=== PATIENT | male | born 2005 | race Caucasian/White ===

== ENCOUNTER → 2024-05-21 | Outpatient (CLI) | payer BC, SELFPAY ==
--- NOTE | 2024-05-21 10:02 | XR_ITS ---
Examination: Lumbar spine 7 views TECHNIQUE: AP, lateral, standing lateral flexion standing lateral extension, coned lateral lower lumbar spine, GARCIA MAY 7 views Exam date and time: May 21, 2024 1057 hours INDICATIONS: Family history scoliosis back pain 3 months. FINDINGS: Spina bifida S1 No lumbar fracture Moderate disc narrowing L5-S1 No spondylolisthesis Adequate range of motion between flexion and extension IMPRESSION: Moderate degenerative disc disease L5-S1
--- NOTE | 2024-05-21 10:02 | XR_ITS ---
Examination: Thoracic spine 3 views Technique one AP lateral coned lateral upper dorsal spine 3 views Exam date and time: May 21, 2024 1058 hours INDICATIONS: Family history scoliosis, back pain 3 months FINDINGS: Thoracic levoscoliosis 6 degrees No thoracic acute fracture Mild wedging of multiple upper dorsal vertebral bodies with early degenerative disc disease IMPRESSION: Lumbar levoscoliosis 6 degrees Chronic mild wedging of upper dorsal vertebral bodies No acute thoracic fracture
== END | disposition home or self-care (01) ==
PROVIDERS: PCP Family Medicine; Referring Provider Nurse Practitioner Family; Visit Provider Nurse Practitioner Family
DX: M51.379 Other intervertebral disc degeneration, lumbosacral region without mention of lumbar back pain or lower extremity pain (principal); M41.86 Other forms of scoliosis, lumbar region
CPT/HCPCS: 72072; 72114

== ENCOUNTER → 2024-05-22 | Outpatient (CLI) | payer BC, SELFPAY ==
[2024-05-22 16:44] LABS: Basophils # (Auto) 0.1 Thou/mm3 (0.0-0.2); Basophils % (Auto) 1 % (0-2.5); Eosinophils # (Auto) 0.1 Thou/mm3 (0.0-0.5); Eosinophils % (Auto) 2 % (0-10); Hematocrit 43.2 % (41.0-53.0); Hemoglobin 14.8 g/dL (13.5-16.0); Immature Granulocytes % (Auto) 0 % (0-0); Immature Granulocytes Auto 0.01 Thou/mm3 (0.00-0.00); Lymphocytes # (Auto) 1.1 Thou/mm3 (1.0-4.8); Lymphocytes % (Auto) 19 % (10-50); Mean Corpuscular HGB Conc 34.3 g/dl (31.0-37.0); Mean Corpuscular Hemoglobin 29.2 pg (25.0-35.0); Mean Corpuscular Volume 85 fL (80-100); Monocytes # (Auto) 0.5 Thou/mm3 (0.0-0.8); Monocytes % (Auto) 8 % (0-12); Neutrophils # (Auto) 4.1 Thou/mm3 (1.8-7.7); Neutrophils % (Auto) 70 % (37-80); Nucleated Red Blood Cell % 0 /100 WBC (0); Platelet Count 266 Thou/mm3 (140-440); Red Blood Count 5.06 Miln/mm3 (4.50-5.90); White Blood Count 5.8 Thou/mm3 (4.5-11.0)
[2024-05-22 17:02] LABS: Alanine Aminotransferase 19 U/L (10-49); Albumin, Serum 5.3 gm/dL (3.5-5.0); Albumin/Globulin Ratio 2.7 (1.2-2.2); Alkaline Phosphatase 69 U/L (46-116); Anion Gap 10 (7-16); Aspartate Amino Transferase 20 U/L (0-34); BUN/Creatinine Ratio 19 Ratio (12-20); Bilirubin,Total 0.4 mg/dL (0.3-1.2); Blood Urea Nitrogen 17 mg/dL (9-23); Calcium 10.3 mg/dL (8.3-10.6); Calcium (Corrected) 10.3 mg/dL (8.5-10.1); Carbon Dioxide 28.4 mMol/L (20.0-31.0); Chloride 103 mMol/L (98-107); Creatinine (Component) 0.9 mg/dL (0.6-1.3); Glucose 114 mg/dL (74-106); Osmolality,Calculated 283 (275-295); Potassium 3.8 mMol/L (3.4-5.1); Sodium 141 mMol/L (136-145); T4 (Thyroxine) 8.1 mcg/dL (4.5-10.9); Thyroid Stimulating Hormone 2.82 uIU/mL (0.55-4.78); Total Protein 7.3 gm/dL (5.7-8.2); eGFR > 60 See Note
[2024-05-22 19:32] LABS: Glucose Estimated Average 100 mg/dL (80-131); Hemoglobin A1C 5.1 % Hgb (4.8-6.0)
[2024-05-28 06:36] LABS: HLA-B27 Antigen* NEGATIVE (NEGATIVE)
== END | disposition home or self-care (01) ==
LOC: COPL 15:37
PROVIDERS: PCP Family Medicine; Referring Provider Nurse Practitioner Family; Visit Provider Nurse Practitioner Family
DX: M45.0 Ankylosing spondylitis of multiple sites in spine (principal); R53.83 Other fatigue; Z86.39 Personal history of other endocrine, nutritional and metabolic disease
CPT/HCPCS: 36415; 80053; 83036; 84436; 84443; 85025; 86812

== ENCOUNTER 2024-10-26 09:26 | Emergency (ER) | payer BC, SELFPAY ==
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
[2024-10-26 09:36] VITALS: BP 161/81; PULSE 113; RESP 20; TEMP 36.9; O2SAT 95
[2024-10-26 09:39] VITALS: BMI 22.7
--- NOTE | 2024-10-26 09:46 | EKG_ITS ---
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
--- NOTE | 2024-10-26 10:27 | XR_ITS ---
Examination: CT brain head without contrast. 2-D sagittal coronal reconstructions Date and time of exam:October 26, 2024, 1115 hrs. Indications: Altered mental status today CTDI: vol (mGy):50 DLP: (mGycm):908 Technique: Multiple CT axial sections of the brain have been obtained, 5 mm slice thickness. Contrast has not been administered. 2-D sagittal, coronal reconstructions have been obtained Low dose protocols were performed. One or more of the following dose reduction techniques were used; automated exposure control, adjustment of the mA and/or KV according to patient size, use of iterative reconstruction technique. Findings: No significant ventricular enlargement. Intra-axial or extra-axial hemorrhage density is not seen. No mass effect or midline shift Basal cisterns are not remarkable. Fourth ventricle is midline. Cranial vault intact. Impression: Negative for acute hemorrhage, mass effect or midline shift
--- NOTE | 2024-10-26 10:31 | PD.EDSEIZ ---
ED Seizures RME/HPI General Chief Complaint: Seizure Stated Complaint: Seizure Time Seen by Provider: 10/26/24 09:50 Arrival date/time: 10/26/24 09:26 Limitations: no limitations RME / HPI RME / HPI Narrative: DR. VELASOC MAIN ED EVALUATION: 19 year old male presents to the Emergency Department with complaint of seizure-like activity. The episode today lasted about 5 minutes and the patient was alert and able to speak shortly after the episode. Per father, he had 2 episodes this year, last one in June; father showed me a video of the episode in June and it does not look like a seizure. No neurologist or history of seizure. Associated symptoms includes a headache. Related Data Home Medications ?Medication ?Instructions ?Recorded ?Confirmed No Known Home Medications 06/22/19 06/22/19 Allergies Allergy/AdvReac Type Severity Reaction Status Date / Time No Known Allergies Allergy Verified 10/26/24 09:30 Review of Systems Review of Systems Systems Reviewed: All systems reviewed, normal except as documented Past Medical History Social History SMOKING STATUS: Never smoker SUBSTANCE USE: does not use ALCOHOL: Never ED Exam General Limitations: Present no limitations General appearance: Present alert and in no apparent distress Head Head exam: Present atraumatic, normocephalic and normal inspection Eye Eye exam: Present normal appearance, PERRL and EOMI ENT ENT exam: Present normal exam, normal oropharynx and mucous membranes moist Neck Neck exam: Present normal inspection, full ROM and trachea midline Chest Chest inspection: Present normal inspection and symmetric chest wall rise Respiratory Respiratory exam: Present normal lung sounds bilaterally Cardiovascular Cardiovascular exam: Present regular rate, normal rhythm and normal heart sounds Abdominal Exam Abdominal exam: Present soft and normal bowel sounds Extremities Exam Extremities exam: Present normal inspection and full ROM Back Exam Back exam: Present normal inspection and full ROM Neurological Exam Neurological exam: Present alert, oriented X3 and CN II-XII intact Psychiatric Psychiatric exam: Present normal affect and normal mood Skin Skin exam: Present warm, dry, intact and normal color Course Quality Measures none Orders Category Date Time Status It Sales Consultant NOW Care 10/26/24 10:25 Completed Continuous Pulse Oximetry NOW Care 10/26/24 10:25 Completed EKG (ED ONLY) *Do not use* NOW Care 10/26/24 09:46 Completed Insert IV NOW Care 10/26/24 10:26 Completed NPO NOW Care 10/26/24 10:[address] head/brain wo con Stat Exams 10/26/24 10:27 Completed EKG (ED Only) Stat Exams 10/26/24 09:46 Draft Acetaminophen Stat Lab 10/26/24 09:33 Completed Alcohol, Blood Medical Stat Lab 10/26/24 09:33 Completed CBC Stat Lab 10/26/24 09:33 Completed Comprehensive Metabolic Panel Stat Lab 10/26/24 09:33 Completed Drug Screen,Urine Stat Lab 10/26/24 10:26 Ordered Magnesium Stat Lab 10/26/24 09:33 Completed Partial Thromboplastin Time Stat Lab 10/26/24 09:33 Completed Prothrombin Time with INR Stat Lab 10/26/24 09:33 Completed Salicylate Stat Lab 10/26/24 09:33 Completed Urinalysis Stat Lab 10/26/24 10:26 Ordered Ketorolac Inj [Toradol Inj] Med 10/26/24 10:33 Discontinued 15 mg IVP X1 ONE Morphine Inj Med 10/26/24 10:33 Discontinued 4 mg IVP X1 ONE Ondansetron Inj [Zofran Inj] Med 10/26/24 10:32 Discontinued 4 mg IVP X1 ONE Potassium Chloride [K-Dur] Med 10/26/24 13:01 Discontinued 40 meq PO X1 ONE Sodium Chloride 0.9% 1000 ml [Ns] 1,000 ml Med 10/26/24 10:25 Discontinued IV 1,000 mls/hr levETIRAcetam INJ [Keppra Inj] Med 10/26/24 10:25 Discontinued 1,000 mg IVP X1 ONE Vital Signs Vital signs: Vital Signs Temperature 98.4 F 10/26/24 09:36 Pulse Rate 113 H 10/26/24 09:36 Respiratory Rate 20 10/26/24 09:36 Blood Pressure 161/81 H 10/26/24 09:36 Pulse Oximetry (%) 95 10/26/24 09:36 Oxygen Delivery Method Nasal Cannula 10/26/24 09:36 Oxygen Flow Rate 2 10/26/24 09:36 Seizure MDM Narrative MDM Narrative:: ICarri am scribing for and in the presence of Dr. Velasco. Patient data External records reviewed:: [facility] previous records Clinical information provided by:: patient and family Social determinants that could affect healthcare access:: substance use (marijuana) Patient has the following chronic illnesses:: Denies any PMHx, surgeries, daily medications, or known allergies. How is presenting disease/condition affected by chronic disease/condition?: no chronic disease Evaluation data The following diagnostics were reviewed and interpreted by me:: lab results, radiology exam(s) and EKG tracing(s) (My interpretation: EKG performed at 0953 hours, sinus tachycardia, rate 101, no acute changes, no STEMI) Lab and/or radiology exams considered but not ordered:: none Interpretation Summary: Procedure(s): CT head/brain wo con Accession Number(s): [id number] cc: Aidan Velasco MD; Yvon Plasencia MD; Sondra Thompson MD~ Examination: CT brain head without contrast. 2-D sagittal coronal reconstructions Date and time of exam:October 26, 2024, 1115 hrs. Indications: Altered mental status today CTDI: vol (mGy):50 DLP: (mGycm):908 Technique: Multiple CT axial sections of the brain have been obtained, 5 mm slice thickness. Contrast has not been administered. 2-D sagittal, coronal reconstructions have been obtained Low dose protocols were performed. One or more of the following dose reduction techniques were used; automated exposure control, adjustment of the mA and/or KV according to patient size, use of iterative reconstruction technique. Findings: No significant ventricular enlargement. Intra-axial or extra-axial hemorrhage density is not seen. No mass effect or midline shift Basal cisterns are not remarkable. Fourth ventricle is midline. Cranial vault intact. Impression: Negative for acute hemorrhage, mass effect or midline shift Dictated By: Yvon Plasencia MD Medications / Prescriptions Medications or Prescriptions considered but not ordered:: none Medication administrations:: Medication Administration History Discontinued Medications Sodium Chloride (Ns) 1,000 mls @ 1,000 mls/hr IV .Q1H ONE Stop: 10/26/24 11:24 Last Infusion: 10/26/24 11:45 Dose: Infused Documented By: Admin: 10/26/24 10:41 Dose: 1,000 mls/hr Documented By: SONIA Ketorolac Tromethamine (Ketorolac Inj 30 Mg/Ml Vial) 15 mg IVP X1 ONE Stop: 10/26/24 10:34 Last Admin: 10/26/24 10:54 Dose: 15 mg Documented By: GM Levetiracetam (Levetiracetam Inj 100 Mg/Ml Vial 5ml) 1,000 mg IVP X1 ONE Stop: 10/26/24 10:26 Last Admin: 10/26/24 10:35 Dose: 1,000 mg Documented By: GM Morphine Sulfate (Morphine Sulf Inj 10 Mg/Ml Vial) 4 mg IVP X1 ONE Stop: 10/26/24 10:34 Last Admin: 10/26/24 10:52 Dose: Not Given Documented By: GM Non-Admin Reason: Patient Refused Ondansetron HCl (Ondansetron Inj 2 Mg/Ml Inj 2 Ml) 4 mg IVP X1 ONE; Protocol Stop: 10/26/24 10:33 Last Admin: 10/26/24 10:40 Dose: 4 mg Documented By: GM Potassium Chloride (Potassium Chloride 20 Meq Tabcr) 40 meq PO X1 ONE Stop: 10/26/24 13:02 see above Consultations Consultation(s) initiated? (list below): No Diagnosis Seizure Differential Diagnosis: intractable seizure disorder, focal seizure and generalized seizure Most likely diagnosis given after review of the tests above:: Hypokalemia Hypocalcemia Admission Indicated Admission indicated?: not indicated Admission Request Was there a request for admission?: No Disposition Plan Disposition Plan: Discharge Discharge Attestation Discharge Attestation: The patient and all family members were given an opportunity to ask questions and understood the discharge instructions. Discharge instructions specifically effects, indications for sooner follow up or return to the emergency department, and the expected course of current diagnosis. Patient condition: Stable Discharge Plan Plan Patient Disposition: HOME (Self Care) Patient condition on transfer: Stable Prescriptions/Referrals Prescriptions/Med Rec: No Action No Known Home Medications Referrals: Sondra Thompson MD [Primary Care Provider] - In 1 week Problem List Clinical Impression: Hypokalemia, Hypocalcemia Patient/Caregiver Discharge Instructions Education Materials: ED Hypokalemia, ED Hypocalcemia (Adult) Additional Instructions: Please follow up with PCP by Tuesday to repeat labs and get a treatment of for hypocalcemia. Consider referral to neurologist. Return to the Emergency Department as needed. Print Language: Faroese Stand Alone Forms: Gisselle Award Info., Patient Portal Info Letter
[2024-10-26] MEDS: levETIRAcetam INJ 100 MG/ML VIAL 5ML 1000 MG IVP (10:35)
[2024-10-26] MEDS: ONDANSETRON INJ 2 MG/ML INJ 2 ML 4 MG IVP (10:40)
[2024-10-26] MEDS: SODIUM CHLORIDE 0.9% 1000 ML 1,000 ML IV (10:41)
[2024-10-26] MEDS: KETOROLAC INJ 30 MG/ML VIAL 15 MG IVP (10:54)
[2024-10-26 11:01] VITALS: BP 118/63; PULSE 70; RESP 19; TEMP 36.9; O2SAT 100
[2024-10-26 11:02] LABS: Basophils # (Auto) 0.1 Thou/mm3 (0.0-0.2); Basophils % (Auto) 1 % (0-2.5); Eosinophils # (Auto) 0.2 Thou/mm3 (0.0-0.5); Eosinophils % (Auto) 1 % (0-10); Hematocrit 52.0 % (41.0-53.0); Hemoglobin 16.4 g/dL (13.5-16.0); Immature Granulocytes Auto 0.06 Thou/mm3 (0.00-0.00); Lymphocytes # (Auto) 3.3 Thou/mm3 (1.0-4.8); Lymphocytes % (Auto) 26 % (10-50); Mean Corpuscular HGB Conc 31.5 g/dl (31.0-37.0); Mean Corpuscular Hemoglobin 28.8 pg (25.0-35.0); Mean Corpuscular Volume 91 fL (80-100); Monocytes # (Auto) 1.1 Thou/mm3 (0.0-0.8); Monocytes % (Auto) 9 % (0-12); Neutrophils # (Auto) 7.9 Thou/mm3 (1.8-7.7); Neutrophils % (Auto) 63 % (37-80); Nucleated Red Blood Cell # 0.00 Thou/mm3 (0.00-0.00); Nucleated Red Blood Cell % 0 /100 WBC (0); Platelet Count 351 Thou/mm3 (140-440); RDW Standard Deviation 40.1 fL (35.1-43.9); Red Blood Count 5.69 Miln/mm3 (4.50-5.90); White Blood Count 12.6 Thou/mm3 (4.5-11.0)
[2024-10-26 11:18] LABS: INR 1.1 (0.9-1.3); Partial Thromboplastin Time 23.4 Seconds (22.0-36.0); Prothrombin Time 11.9 Seconds (9.0-12.2)
[2024-10-26 11:27] LABS: Acetaminophen < 2.0 mcg/mL (10.0-20.0); Alanine Aminotransferase 18 U/L (10-49); Albumin, Serum 5.3 gm/dL (3.5-5.0); Albumin/Globulin Ratio 2.0 (1.2-2.2); Alcohol, Blood Medical < 3.0 mg/dL (0-10.0); Alkaline Phosphatase 79 U/L (46-116); Anion Gap 27 (7-16); Aspartate Amino Transferase 23 U/L (0-34); BUN/Creatinine Ratio 11 Ratio (12-20); Bilirubin,Total 0.7 mg/dL (0.3-1.2); Blood Urea Nitrogen 13 mg/dL (9-23); Calcium 10.6 mg/dL (8.3-10.6); Calcium (Corrected) 10.6 mg/dL (8.5-10.1); Chloride 111 mMol/L (98-107); Creatinine (Component) 1.2 mg/dL (0.6-1.3); Estimated Creatinine Clearance 99.8 mL/min (>60); Globulin 2.6 gm/dL (2.3-3.5); Glucose 124 mg/dL (74-106); Magnesium 2.4 mg/dL (1.6-2.6); Osmolality,Calculated 302 (275-295); Potassium 3.3 mMol/L (3.4-5.1); Salicylate < 3.0 mg/dL; Sodium 152 mMol/L (136-145); Total Protein 7.9 gm/dL (5.7-8.2); eGFR > 60 See Note
--- NOTE | 2024-10-26 11:30 | PRELIM_ITS ---
CT scan of the head without intravenous contrast (axial sections with sagittal and coronal reformats). October 26, 2024 1115 hours Clinical History: ams Comparison: No prior study is available for comparison at the time of interpretation Findings: No evidence of intracranial hemorrhage, mass effect or midline shift. The ventricles and CSF spaces are unremarkable. The calvarium is unremarkable. Mild mucosal thickening is seen in bilateral maxillary sinuses. The mastoid air cells and the other visualized paranasal sinuses are clear. Impression: No evidence of intracranial hemorrhage, mass effect or midline shift. If there are persistent clinical symptoms or additional clinical concerns, consider MRI. Report Electronically Signed By: Fermin Feliz 10/26/2024 11:29:13 AM [EST]
[2024-10-26 11:33] LABS: Carbon Dioxide 13.6 mMol/L (20.0-31.0)
[2024-10-26 13:41] VITALS: BP 126/84; PULSE 90; RESP 18; TEMP 36.8; O2SAT 95
== END 2024-10-26 14:40 | disposition home or self-care (01) ==
PROVIDERS: Emergency Provider Family Medicine; PCP Family Medicine
DX: E87.6 Hypokalemia (principal); E83.51 Hypocalcemia; R41.82 Altered mental status, unspecified; R00.0 Tachycardia, unspecified
CPT/HCPCS: 36415; 70450; 80053; 80307; 80320; 80329; 81001; 83735; 85025; 85610; 85730; 93005; 96361; 96374; 96375; 99284; J1885; J1953; J2405; J7030; A9270; G0480

== ENCOUNTER → 2024-10-31 | Outpatient (CLI) | payer BC, SELFPAY ==
[2024-10-31 08:51] LABS: Basophils # (Auto) 0.0 Thou/mm3 (0.0-0.2); Basophils % (Auto) 1 % (0-2.5); Eosinophils # (Auto) 0.1 Thou/mm3 (0.0-0.5); Eosinophils % (Auto) 2 % (0-10); Hematocrit 45.7 % (41.0-53.0); Hemoglobin 15.5 g/dL (13.5-16.0); Immature Granulocytes Auto 0.01 Thou/mm3 (0.00-0.00); Lymphocytes # (Auto) 0.8 Thou/mm3 (1.0-4.8); Lymphocytes % (Auto) 19 % (10-50); Mean Corpuscular HGB Conc 33.9 g/dl (31.0-37.0); Mean Corpuscular Hemoglobin 29.2 pg (25.0-35.0); Mean Corpuscular Volume 86 fL (80-100); Monocytes # (Auto) 0.3 Thou/mm3 (0.0-0.8); Monocytes % (Auto) 8 % (0-12); Neutrophils # (Auto) 3.0 Thou/mm3 (1.8-7.7); Neutrophils % (Auto) 71 % (37-80); Nucleated Red Blood Cell # 0.00 Thou/mm3 (0.00-0.00); Nucleated Red Blood Cell % 0 /100 WBC (0); Platelet Count 239 Thou/mm3 (140-440); RDW Standard Deviation 38.0 fL (35.1-43.9); Red Blood Count 5.30 Miln/mm3 (4.50-5.90); White Blood Count 4.3 Thou/mm3 (4.5-11.0)
[2024-10-31 08:55] LABS: B-Type Natriuretic Peptide < 20 pg/mL (0-100)
[2024-10-31 09:10] LABS: Alanine Aminotransferase 18 U/L (10-49); Albumin, Serum 5.0 gm/dL (3.5-5.0); Albumin/Globulin Ratio 2.1 (1.2-2.2); Alkaline Phosphatase 68 U/L (46-116); Anion Gap 11 (7-16); Aspartate Amino Transferase 17 U/L (0-34); BUN/Creatinine Ratio 14 Ratio (12-20); Bilirubin,Total 0.8 mg/dL (0.3-1.2); Blood Urea Nitrogen 14 mg/dL (9-23); Calcium 10.2 mg/dL (8.3-10.6); Calcium (Corrected) 10.2 mg/dL (8.5-10.1); Carbon Dioxide 29.4 mMol/L (20.0-31.0); Chloride 105 mMol/L (98-107); Creatinine (Component) 1.0 mg/dL (0.6-1.3); Globulin 2.4 gm/dL (2.3-3.5); Glucose 98 mg/dL (74-106); Osmolality,Calculated 289 (275-295); Potassium 4.2 mMol/L (3.4-5.1); Sodium 145 mMol/L (136-145); Total Protein 7.4 gm/dL (5.7-8.2); eGFR > 60 See Note
[2024-11-05 09:39] LABS: Osmolality, Serum* 317 mOsm/kg (278-305); Osmolality, Urine* 518 mOsm/kg (50-1200)
== END | disposition home or self-care (01) ==
PROVIDERS: PCP Family Medicine; Referring Provider Nurse Practitioner Family; Visit Provider Nurse Practitioner Family
DX: E87.8 Other disorders of electrolyte and fluid balance, not elsewhere classified (principal); R56.9 Unspecified convulsions; R07.9 Chest pain, unspecified
CPT/HCPCS: 36415; 80053; 83880; 83930; 83935; 85025

== ENCOUNTER 2024-11-10 11:41 | Emergency (ER) | payer BC, SELFPAY ==
[2024-11-10 11:48] VITALS: PULSE 86; O2SAT 98; BMI 17.7
[2024-11-10 11:50] VITALS: BP 133/83; PULSE 100; RESP 18; TEMP 37.1; O2SAT 97
--- NOTE | 2024-11-10 12:06 | XR_ITS ---
Examination: CT brain head without contrast. 2-D sagittal coronal reconstructions Date and time of exam:November 10, 2024, 1401 hrs., Comparison October 26, 2024 Indications: Seizure today CTDI: vol (mGy):48.3. DLP: (mGycm):900 Technique: Multiple CT axial sections of the brain have been obtained, 5 mm slice thickness. Contrast has not been administered. 2-D sagittal, coronal reconstructions have been obtained Low dose protocols were performed. One or more of the following dose reduction techniques were used; automated exposure control, adjustment of the mA and/or KV according to patient size, use of iterative reconstruction technique. Findings: No significant ventricular enlargement. Intra-axial or extra-axial hemorrhage density is not seen. No mass effect or midline shift Basal cisterns are not remarkable. Fourth ventricle is midline. Cranial vault intact. Impression: Negative for acute hemorrhage, mass effect or midline shift Consider elective MRI brain follow-up, pre and postcontrast, seizure protocol
--- NOTE | 2024-11-10 12:07 | PD.EDAMS ---
Altered Mental Status RME/HPI General Chief Complaint: Altered Mental Status Stated Complaint: ALTERED Time Seen by Provider: 11/10/24 11:52 Arrival date/time: 11/10/24 11:41 RME / HPI RME / HPI narrative: 19-year-old male patient who admits SMOKING weed, was brought in by EMS for evaluation regarding confusion. 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 There was no witness of possible seizure. When the EMS arrived patient was noted to be confused. On my evaluation patient is alert and oriented x 3. Denies any complaints. Patient denies any headache denies any other complaints. I spoke with patient's dad who told me that patient already had 3 episode of seizure, the first 1 was 3 months ago the second 1 was a month ago and the last 1 was 2 weeks ago patient is waiting to be seen by a neurologist. Which will be this coming November. Currently patient is not taking any medication. Related Data Previous Rx's ?Medication ?Instructions ?Recorded levetiracetam 500 mg tablet 500 mg PO BID #60 tabs 11/10/24 (Kechrisra) Allergies Allergy/AdvReac Type Severity Reaction Status Date / Time No Known Allergies Allergy Verified 10/26/24 09:30 Review of Systems Review of Systems Narrative Review of Systems: Review of system reviewed and within normal limits except mentioned in HPI ED Exam Narrative Physical exam: VITAL SIGNS: Reviewed. GENERAL APPEARANCE: Alert and interactive, follows commands, no acute distress, HEAD AND FACE: Non-traumatic. ENT: PERRL, pink conjunctivitis, eyelid no trauma, Mucous membrane moist. NECK: Supple, nontender, no nuchal rigidity. CHEST: No tenderness, no crepitus, no paradoxical movement, no retractions. LUNGS: Clear, well ventilated, symmetric, no rales, no wheezing, no ronchi, no stridor, good breath sounds bilaterally. HEART: Regular rate, regular rhythm, no murmur, no gallops. ABDOMEN: Soft, positive bowel sounds, nondistended, no guarding, nontender, no rebound, no masses, RECTAL: Deferred. GENITAL: Deferred. NEUROLOGICAL: Gross motor function intact sensory function intact, Appropriate for age. MUSCULOSKELETAL: low back nontender, full range of motion. EXTREMITIES: Nontender, full range of motion. SKIN: Color pink, dry, no rash, no lacerations, no abrasions, no contusions. LYMPHATICS: Deferred. Course Quality Measures none Orders Category Date Time Status CT head/brain wo con Stat Exams 11/10/24 12:06 Completed CBC [CBC] Stat Lab 11/10/24 13:17 Completed CMP [Comprehensive Metabolic Panel] Stat Lab 11/10/24 12:16 Completed Drug Screen,Urine Stat Lab 11/10/24 14:12 Received Lactate (Lactic Acid) Stat Lab 11/10/24 12:16 Results UA, C/S IF [Urinalysis, C/S if Indicated] Stat Lab 11/10/24 14:12 Completed Ringers Lactated 1000 ml [Lactated Ringers] 1,000 ml Med 11/10/24 12:06 Discontinued IV 999 mls/hr levETIRAcetam INJ [Keppra Inj] Med 11/10/24 12:06 Discontinued 1,000 mg IVP X1 ONE Vital Signs Vital signs: Vital Signs Temperature 98.7 F 11/10/24 11:50 Pulse Rate 100 11/10/24 11:50 Respiratory Rate 18 11/10/24 11:50 Blood Pressure 133/83 H 11/10/24 11:50 Pulse Oximetry (%) 97 11/10/24 11:50 Oxygen Delivery Method Room Air 11/10/24 11:50 Altered Mental Status MDM Narrative MDM Narrative:: 19-year-old male patient who admits SMOKING weed, was brought in by EMS for evaluation regarding confusion. 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 There was no witness of possible seizure. When the EMS arrived patient was noted to be confused. On my evaluation patient is alert and oriented x 3. Denies any complaints. Patient denies any headache denies any other complaints. I spoke with patient's dad who told me that patient already had 3 episode of seizure, the first 1 was 3 months ago the second 1 was a month ago and the last 1 was 2 weeks ago patient is waiting to be seen by a neurologist. Which will be this coming November. Currently patient is not taking any medication. Laboratory workup significant for a lactic acid of 6.5. Which is secondary to seizure attacks. CT scan of the head came back unremarkable. Patient received IV fluids, Keppra IV, and now patient is back to baseline denies any complaints. Alert and oriented x 4. Repeat lactic acid is not needed at this time. Patient case discussed with neurologist, Dr Mejia, who told me that patient will be sent home on Keppra 500 twice daily and follow-up in her clinic this coming December 05. Patient appears nontoxic and hemodynamically stable .Decision to discharge the patient. The patient/family was given an opportunity to ask questions and understood their discharge instructions. Discharge instructions specifically included follow up provider and time frame, current and/or new medications and possible side effects, indications for sooner follow up or return to the emergency department, and the expected course of current diagnosis. Patient reports feeling better as well and giving evidence of significant clinical improvement, I believe patient is now a candidate for discharge. Patient data External records reviewed:: None Clinical information provided by:: patient Social determinants that could affect healthcare access:: none Patient has the following chronic illnesses:: None How is presenting disease/condition affected by chronic disease/condition?: no chronic disease Evaluation data The following diagnostics were reviewed and interpreted by me:: lab results and radiology exam(s) Lab and/or radiology exams considered but not ordered:: None Interpretation Summary: None Medications / Prescriptions Medications or Prescriptions considered but not ordered:: None Medication administrations:: Medication Administration History Discontinued Medications Lactated Ringer's (Lactated Ringers) 1,000 mls @ 999 mls/hr IV .Q1H1M ONE Stop: 11/10/24 13:06 Last Infusion: 11/10/24 13:19 Dose: Infused Documented By: Admin: 11/10/24 12:18 Dose: 999 mls/hr Documented By: EF Levetiracetam (Levetiracetam Inj 100 Mg/Ml Vial 5ml) 1,000 mg IVP X1 ONE Stop: 11/10/24 12:07 Last Admin: 11/10/24 12:17 Dose: 1,000 mg Documented By: EF Keppra IV fluids Consultations Consultation(s) initiated? (list below): Yes Consultation #1 (Physician, Specialty, Details): Dr Mejia, discussed the case thank you DrJanice Diagnosis Differential diagnosis altered mental status: altered mental status and other (Seizure disorder, seizure attack) Most likely diagnosis given after review of the tests above:: Seizure disorder Admission Indicated Admission indicated?: not indicated Admission Request Was there a request for admission?: No Disposition Plan Disposition Plan: Discharge Discharge Attestation Discharge Attestation: The patient and all family members were given an opportunity to ask questions and understood the discharge instructions. Discharge instructions specifically effects, indications for sooner follow up or return to the emergency department, and the expected course of current diagnosis. Patient condition: Stable Discharge Plan Plan Patient Disposition: HOME (Self Care) Discharge Disposition comment: Stable Prescriptions/Referrals Prescriptions/Med Rec: New levetiracetam [Keppra] 500 mg tablet 500 mg PO BID Qty: 60 0RF Referrals: Graham Thompson MD [Primary Care Provider] - In 1 week Problem List Clinical Impression: Seizure disorder Patient/Caregiver Discharge Instructions Discharge Activity: activity as tolerated Education Materials: Treating Epilepsy: Medicines Additional Instructions: Thank you for the opportunity for serving you today. You are stable for discharged . You are advised to: Follow-up with Dr. Mejia this coming December 05 Return to ED for worsening of symptoms Increase oral fluids Take medication as prescribed You are not allowed to drive machinery, operate machinery, drive a car, swim, climb until cleared by neurologist Print Language: Occitan Stand Alone Forms: Gisselle Award Info., Patient Portal Info Letter PA/CLIENT DEVELOPMENT DIRECTOR Supervising Physician PA/CLIENT DEVELOPMENT DIRECTOR Supervising Physician: MD Ishmael
[2024-11-10] MEDS: levETIRAcetam INJ 100 MG/ML VIAL 5ML 1000 MG IVP (12:17)
[2024-11-10] MEDS: RINGERS LACTATED 1000 ML 1,000 ML 999 ML IV (12:18)
[2024-11-10 12:31] LABS: Lactate (Lactic Acid) 6.5 mMol/L (0.4-2.0)
[2024-11-10 12:53] LABS: Alanine Aminotransferase 17 U/L (10-49); Albumin, Serum 4.8 gm/dL (3.5-5.0); Albumin/Globulin Ratio 2.0 (1.2-2.2); Alkaline Phosphatase 71 U/L (46-116); Anion Gap 15 (7-16); Aspartate Amino Transferase 26 U/L (0-34); BUN/Creatinine Ratio 14 Ratio (12-20); Bilirubin,Total 0.3 mg/dL (0.3-1.2); Blood Urea Nitrogen 15 mg/dL (9-23); Calcium 9.6 mg/dL (8.3-10.6); Calcium (Corrected) 9.6 mg/dL (8.5-10.1); Carbon Dioxide 21.0 mMol/L (20.0-31.0); Chloride 107 mMol/L (98-107); Creatinine (Component) 1.1 mg/dL (0.6-1.3); Estimated Creatinine Clearance 82.5 mL/min (>60); Globulin 2.4 gm/dL (2.3-3.5); Glucose 95 mg/dL (74-106); Osmolality,Calculated 285 (275-295); Potassium 4.5 mMol/L (3.4-5.1); Sodium 143 mMol/L (136-145); Total Protein 7.2 gm/dL (5.7-8.2); eGFR > 60 See Note
--- NOTE | 2024-11-10 13:25 | PC.NURSE ---
Pt encouraged to provide a UA sample.
[2024-11-10 13:37] LABS: Basophils # (Auto) 0.0 Thou/mm3 (0.0-0.2); Basophils % (Auto) 0 % (0-2.5); Eosinophils # (Auto) 0.0 Thou/mm3 (0.0-0.5); Eosinophils % (Auto) 0 % (0-10); Hematocrit 40.1 % (41.0-53.0); Hemoglobin 14.1 g/dL (13.5-16.0); Immature Granulocytes Auto 0.06 Thou/mm3 (0.00-0.00); Lymphocytes # (Auto) 0.4 Thou/mm3 (1.0-4.8); Lymphocytes % (Auto) 3 % (10-50); Mean Corpuscular HGB Conc 35.2 g/dl (31.0-37.0); Mean Corpuscular Hemoglobin 29.4 pg (25.0-35.0); Mean Corpuscular Volume 84 fL (80-100); Monocytes # (Auto) 0.5 Thou/mm3 (0.0-0.8); Monocytes % (Auto) 4 % (0-12); Neutrophils # (Auto) 11.8 Thou/mm3 (1.8-7.7); Neutrophils % (Auto) 92 % (37-80); Nucleated Red Blood Cell # 0.00 Thou/mm3 (0.00-0.00); Nucleated Red Blood Cell % 0 /100 WBC (0); Platelet Count 234 Thou/mm3 (140-440); RDW Standard Deviation 38.1 fL (35.1-43.9); Red Blood Count 4.79 Miln/mm3 (4.50-5.90); White Blood Count 12.8 Thou/mm3 (4.5-11.0)
[2024-11-10 14:17] LABS: Collection Type, Urine Clean Catch; Squamous Epithelial Cell,Urine 0 /hpf (0-5)
[2024-11-10 14:25] LABS: Bilirubin,Urine Negative (Negative); Blood,Urine Negative (Negative); Clarity,Urine Clear (Clear/Hazy); Color,Urine Colorless (Lt Yel-Yel); Culture Indicated,Urine Not Indicated; Glucose, Urine Negative (Negative); Ketones,Urine Negative (Negative); Leukocyte Esterase,Urine Negative (Negative); Nitrite,Urine Negative (Negative); PH,Urine 6.0 (5.0-7.0); Protein,Urine Trace (Neg - Trace); RBC,Urine 1 /hpf (0-3); Specific Gravity,Urine 1.015 (1.001-1.035); Urobilinogen,Urine Negative mg/dL (0.0-1.0); WBC,Urine 1 /hpf (0-5)
[2024-11-10 15:23] LABS: Amphetamine/Methamp Scrn,U Negative (Negative); Barbiturate Screen,Urine Negative (Negative); Benzodiazepines Screen,Urine Negative (Negative); Benzoylecgonine Screen, Ur Negative (Negative); Fentanyl Screen,Urine Negative (Negative); Opiate Screen,Urine Negative (Negative); THC Screen,Urine Positive (Negative)
[2024-11-10 15:23] LABS: Reflex Lactate? Y
[2024-11-10 15:24] VITALS: BP 117/70; PULSE 66; RESP 18; O2SAT 97
== END 2024-11-10 15:38 | disposition home or self-care (01) ==
PROVIDERS: Nurse Practitioner Family; Emergency Provider Family Medicine; PCP Family Medicine
DX: G40.909 Epilepsy, unspecified, not intractable, without status epilepticus (principal)
CPT/HCPCS: 36415; 70450; 80053; 80307; 81001; 83605; 85025; 96361; 96374; 99283; J1953; J7120

== ENCOUNTER → 2024-11-26 | Outpatient (CLI) | payer BC, SELFPAY ==
[2024-12-03 14:35] LABS: Osmolality, Serum* 295 mOsm/kg (278-305)
== END | disposition home or self-care (01) ==
LOC: CDIM 13:00 → COPL 13:06
PROVIDERS: PCP Nurse Practitioner Family; Referring Provider Nurse Practitioner Family; Visit Provider Nurse Practitioner Family
DX: E87.0 Hyperosmolality and hypernatremia (principal)
CPT/HCPCS: 36415; 83930

== ENCOUNTER → 2024-12-20 | Outpatient (CLI) | payer BC, SELFPAY ==
--- NOTE | 2024-12-20 12:45 | XR_ITS ---
Examination: MRI brain without intravenous contrast. Date and time of exam: December 20, 2024 1402 hours INDICATIONS: Seizures beginning June 2024 Technique: Multiple axial and sagittal images of the brain obtained. Siemens high-resolution 1.5 Jina short bore scanners utilized. Sagittal sections, T1-weighted, TR 500, TE 14, are performed. Axial sections proton-density and T2-weighted have been obtained. Inversion recovery axial images, TR 9, 260, TE 111, TI 2500. Diffusion weighted images, axial sections, TR 4800, TE 128, B value 1000 Axial sections, ADC map, TR 4800, TE 128 Findings: Enlargement of the sella turcica is not present. The optic chiasm and infundibular are not remarkable. Prepontine and interpeduncular cisterns are not enlarged. There is no localized enlargement of the medulla or wesley. Fourth ventricle and cerebellar tonsils appear normal in position. No subacute area of hemorrhage density is seen. Mass in the cerebellopontine angle region is not evident. Globes symmetrical. Orbital musculature including medial lateral rectus muscles do not exhibit abnormality. Diffusion-weighted images demonstrate no focus of restricted diffusion. Increased white matter signal evident punctate foci increased signal in the left parietal white matter Mass effect upon the ventricular system is not identified. Impression: Scattered punctate foci increased signal in the white matter, demyelinating disease pattern
== END | disposition home or self-care (01) ==
LOC: SMRI 12:03
PROVIDERS: PCP Nurse Practitioner Family; Referring Provider Nurse Practitioner Family; Visit Provider Nurse Practitioner Family
DX: G93.9 Disorder of brain, unspecified (principal)
CPT/HCPCS: 70551

== ENCOUNTER 2024-12-24 20:00 | Emergency (ER) | payer BC, SELFPAY ==
[2024-12-24 20:00] VITALS: BMI 18.3
--- NOTE | 2024-12-24 20:05 | XR_ITS ---
Examination: CT brain head without contrast. 2-D sagittal coronal reconstructions Date and time of exam:December 24, 20242028 hrs., Comparison November 10, 2024 Indications: Seizures today, history seizure November 10, 2024 CTDI: vol (mGy):48.5 DLP: (mGycm):916. Technique: Multiple CT axial sections of the brain have been obtained, 5 mm slice thickness. Contrast has not been administered. 2-D sagittal, coronal reconstructions have been obtained Low dose protocols were performed. One or more of the following dose reduction techniques were used; automated exposure control, adjustment of the mA and/or KV according to patient size, use of iterative reconstruction technique. Findings: No significant ventricular enlargement. Intra-axial or extra-axial hemorrhage density is not seen. No mass effect or midline shift Basal cisterns are not remarkable. Fourth ventricle is midline. Cranial vault intact. Impression: Negative for acute hemorrhage, mass effect or midline shift Advise clinical correlation follow-up accordingly Please see the brain MRI report December 20, 2024
--- NOTE | 2024-12-24 20:05 | XR_ITS ---
Examination: AP chest single view Technique: AP portable upright chest single view Date and time: December 24, 20242033 hrs. Indications: Chest pain shortness of breath today. Findings: Normal heart size. Lungs are clear. The osseous structures are intact Impression: No active disease
--- NOTE | 2024-12-24 20:05 | PD.EDSEIZ ---
ED Seizures RME/HPI General Chief Complaint: Seizure Stated Complaint: Seizure Time Seen by Provider: 12/24/24 20:01 Arrival date/time: 12/24/24 20:00 RME / HPI RME / HPI Narrative: See [facility] for Dr. Dunn's HPI Documentation. Related Data Previous Rx's ?Medication ?Instructions ?Recorded levetiracetam 500 mg tablet 500 mg PO BID #60 tabs 11/10/24 (Keppra) levetiracetam 1,000 mg tablet 1,000 mg PO BID #60 tabs 12/25/24 (Keppra) Allergies Allergy/AdvReac Type Severity Reaction Status Date / Time No Known Allergies Allergy Verified 10/26/24 09:30 Review of Systems Review of Systems Systems Reviewed: All systems reviewed, normal except as documented Past Medical History Past Medical History NEUROLOGIC: Positive Seizures ED Exam Narrative Physical exam: See [facility] for Dr. Dunn's Physical Exam Documentation. Course Course Course Narrative: CXR was ordered for determining the etiology of shortness of breath. Quality Measures none Orders Category Date Time Status Bedside COVID-19 Antigen Test NOW Care 12/24/24 20:01 Completed Bedside Influenza A&B Antigen Test NOW Care 12/24/24 20:01 Completed EKG (ED ONLY) *Do not use* NOW Care 12/24/24 20:05 Completed Saline [Insert IV] NOW Care 12/24/24 20:01 Completed Straight [In and Out Catheter] X1 Care 12/24/24 20:[address] head/brain wo con Stat Exams 12/24/24 20:05 Completed EKG (ED Only) Stat Exams 12/24/24 20:05 Ordered XR chest 1V portable Stat Exams 12/24/24 20:05 Completed ABG [Arterial Blood Gas] Stat Lab 12/24/24 20:15 Completed ABG [Arterial Blood Gas] Stat Lab 12/24/24 22:55 Completed Alcohol, Blood Medical Stat Lab 12/24/24 20:20 Completed Amylase Stat Lab 12/24/24 21:05 Completed Bilirubin,Direct Stat Lab 12/24/24 20:20 Completed Blood Culture (Lab) Stat Lab 12/24/24 21:05 Received CBC Stat Lab 12/24/24 20:20 Completed CK [Creatine Kinase] Stat Lab 12/24/24 20:20 Completed CMP [Comprehensive Metabolic Panel] Stat Lab 12/24/24 20:20 Completed CRP [C-Reactive Protein] Stat Lab 12/24/24 21:05 Completed Drug Screen,Urine Stat Lab 12/24/24 20:56 Completed ESR [Sed Rate (ESR)] Stat Lab 12/24/24 21:05 Completed Lactate (Lactic Acid) Stat Lab 12/24/24 21:05 Completed Lactate (Lactic Acid) Stat Lab 12/24/24 23:20 Completed Lipase Stat Lab 12/24/24 21:05 Completed Magnesium Stat Lab 12/24/24 20:20 Completed Procalcitonin Stat Lab 12/24/24 21:05 Completed TSH [Thyroid Stimulating Hormone] Stat Lab 12/24/24 20:20 Completed Troponin I Stat Lab 12/24/24 20:20 Completed UA, C/S IF [Urinalysis, C/S if Indicated] Stat Lab 12/24/24 20:56 Completed Acetaminophen Tab [Tylenol Tab] Med 12/24/24 20:13 Discontinued 650 mg PO X1 ONE KCL 10% Liq UDC 15 ML Med 12/24/24 21:49 Discontinued 40 meq PO X1 ONE Ketorolac Inj [Toradol Inj] Med 12/24/24 20:13 Discontinued 30 mg IVP X1 ONE Morphine Inj Med 12/24/24 20:34 Discontinued 4 mg IVP X1 ONE Ondansetron Inj [Zofran Inj] Med 12/24/24 20:01 Discontinued 4 mg IVP X1 ONE Ringers Lactated 1000 ml [Lactated Ringers] 1,000 ml Med 12/24/24 21:50 Discontinued IV 1,000 mls/hr Sodium Chloride 0.9% 1000 ml [Ns] 1,000 ml Med 12/24/24 20:01 Discontinued IV 999 mls/hr levETIRAcetam INJ [Keppra Inj] Med 12/24/24 20:01 Discontinued 2,000 mg IVP X1 ONE Vital Signs Vital signs: Vital Signs Temperature 98.1 F 12/24/24 20:35 Respiratory Rate 17 12/24/24 20:35 Blood Pressure 160/90 H 12/24/24 20:35 Pulse Oximetry (%) 100 12/24/24 20:35 Oxygen Delivery Method Room Air 12/24/24 20:35 Seizure MDM Narrative MDM Narrative:: Scribe Attestation: Arely Garg am scribing for and in the presence of Dr. Dunn. Provider Notation: Although this document has been carefully reviewed, there may still be some phonetic and other typographical errors. These errors are purely grammatical due to imperfections in the software program and should not be construed in any way to compromise the substance of the patient's medical care during this visit. This section includes all my notes and documentations, including HPI, PE, and ED course. Fransico Dunn MD HPI: 19 y/o male with Hx of Seizures presents with seizure while sitting in a car just [employer]. Patient can't give history due to postictal state. Friend who was driving the car is here to give us the story. In the car ride, friend describes generalized tonic-clonic seizure for several minutes. With no responsiveness. No injury. Patient takes Keppra 500 mg twice daily and has been compliant. No other obvious complaints. ROS: Can't obtain from the patient due to current clinical condition. Physical Exam: General: In postictal state. Eyes: Conjunctivae and lids clear. EOMI. PERRL. ENT: No signs of head trauma. Neck: Supple. Heart: RRR. Lungs: No respiratory distress. Good air movement. No rhonchi, wheezing, rales. Abdomen: Soft and nontender. Skin: Warm and dry. Cranial Nerves II-XII grossly intact. No peripheral motor deficits. I reviewed all diagnostic test results: My interpretation of the EKG is: Sinus tachycardia (109 bpm) with nonspecific ST-T changes. My interpretation of the chest x-ray is: NAD. My review of the Head/Brain CT report is: NAD. Blood tests and urine tests remarkable for K 3.3, CO2 < 10.0, Cr 1.4, and lactic acid 4.7. ABG showed pH 7.16, pCO2 29, and pHCO3 Covid/Influenza: Negative. At this point, diagnoses include: Recurrent seizures. Treatment here included: IVF, Zofran 4 mg, Keppra 2 G, Toradol 30 mg, Morphine 4 mg. Toradol and morphine were given for severe headache after patient's mental status returned to baseline. Significant improvement noted. Recommended outpatient care. Based on my best medical judgment, made decision no further evaluation or treatment indicated at this time. Patient understands and agrees to the discharge instructions customized and printed, see below. Discharge Instructions from Dr. Dunn printed for you: 1. After extensive evaluation, there is no life-threatening condition. Such as stroke or brain tumor. 2. To prevent another seizure, increase Keppra to 1000 mg twice daily as prescribed until cleared by a doctor taking care of you. 3. See your neurologist on 12/26/2024 for recheck and further care. At minimum, call the office and let them know what happened and ask for further instructions. Ask to review all test results and official radiology reports, to make sure you receive all necessary follow-ups and monitoring. 4. Seek immediate medical care with another seizure or with any concerns. Fransico Dunn MD Patient data External records reviewed:: [facility] previous records (Reviewed prior ED records from 11/10/24. Patient was seen for Seizure disorder.) Clinical information provided by:: patient Social determinants that could affect healthcare access:: none Patient has the following chronic illnesses:: Seizures How is presenting disease/condition affected by chronic disease/condition?: exacerbated by Evaluation data The following diagnostics were reviewed and interpreted by me:: lab results, radiology exam(s) and EKG tracing(s) (My interpretation of the EKG is: Sinus tachycardia (109 bpm) with nonspecific ST-T changes. Fransico Dunn MD) Lab and/or radiology exams considered but not ordered:: None Interpretation Summary: I reviewed all diagnostic test results: My interpretation of the EKG is: Sinus tachycardia (109 bpm) with nonspecific ST-T changes. My interpretation of the chest x-ray is: NAD. My review of the Head/Brain CT report is: NAD. Blood tests and urine tests remarkable for K 3.3, CO2 < 10.0, Cr 1.4, and lactic acid 4.7. ABG showed pH 7.16, pCO2 29, and pHCO3 Covid/Influenza: Negative. Medications / Prescriptions Medications or Prescriptions considered but not ordered:: None Medication administrations:: Medication Administration History Discontinued Medications Acetaminophen (Acetaminophen 325 Mg Tablet) 650 mg PO X1 ONE Stop: 12/24/24 20:14 Last Admin: 12/24/24 21:37 Dose: Not Given Documented By: [email or web address] Non-Admin Reason: Discontinued Sodium Chloride (Ns) 1,000 mls @ 999 mls/hr IV .Q1H1M ONE Stop: 12/24/24 21:01 Last Infusion: 12/24/24 21:33 Dose: Infused Documented By: Admin: 12/24/24 20:12 Dose: 999 mls/hr Documented By: MICHAEL Lactated Ringer's (Lactated Ringers) 1,000 mls @ 1,000 mls/hr IV .Q1H ONE Stop: 12/24/24 22:49 Last Infusion: 12/24/24 23:40 Dose: Infused Documented By: Admin: 12/24/24 21:59 Dose: 1,000 mls/hr Documented By: BRODY Ketorolac Tromethamine (Ketorolac Inj 30 Mg/Ml Vial) 30 mg IVP X1 ONE Stop: 12/24/24 20:14 Last Admin: 12/24/24 20:19 Dose: 30 mg Documented By: BRODY Levetiracetam (Levetiracetam Inj 100 Mg/Ml Vial 5ml) 2,000 mg IVP X1 ONE Stop: 12/24/24 20:02 Last Admin: 12/24/24 20:14 Dose: 2,000 mg Documented By: MICHAEL Morphine Sulfate (Morphine Sulf Inj 10 Mg/Ml Vial) 4 mg IVP X1 ONE Stop: 12/24/24 20:35 Last Admin: 12/24/24 20:58 Dose: 4 mg Documented By: BRODY Ondansetron HCl (Ondansetron Inj 2 Mg/Ml Inj 2 Ml) 4 mg IVP X1 ONE; Protocol Stop: 12/24/24 20:02 Last Admin: 12/24/24 20:14 Dose: 4 mg Documented By: MICHAEL Potassium Chloride (Potassium Chloride 10% 20 Meq/15 Ml Udc) 40 meq PO X1 ONE Stop: 12/24/24 21:50 Last Admin: 12/24/24 21:59 Dose: 40 meq Documented By: BRODY IVF, Zofran 4 mg, Keppra 2 G, Toradol 30 mg, Morphine 4 mg. Consultations Consultation(s) initiated? (list below): No Diagnosis Seizure Differential Diagnosis: intractable seizure disorder, focal seizure, generalized seizure, epileptic seizure and status epilepticus Most likely diagnosis given after review of the tests above:: Recurrent seizures Admission Indicated Admission indicated?: not indicated Explain why admission is indicated or not indicated:: With significant improvement and no condition needing emergent intervention, there was no indication for admission. Admission Request Was there a request for admission?: No Disposition Plan Disposition Plan: Discharge Discharge Attestation Discharge Attestation: The patient and all family members were given an opportunity to ask questions and understood the discharge instructions. Discharge instructions specifically effects, indications for sooner follow up or return to the emergency department, and the expected course of current diagnosis. Patient condition: Stable Discharge Plan Plan Patient Disposition: HOME (Self Care) Prescriptions/Referrals Prescriptions/Med Rec: New levetiracetam [Keppra] 1,000 mg tablet 1,000 mg PO BID Qty: 60 1RF No Action levetiracetam [Keppra] 500 mg tablet 500 mg PO BID Qty: 60 0RF Referrals: Sondra Thompson MD [Primary Care Provider] - In 1 week Problem List Clinical Impression: Recurrent seizures Patient/Caregiver Discharge Instructions Discharge Activity: activity as tolerated Education Materials: ED Seizure, Recurrent (Adult) Additional Instructions: Discharge Instructions from Dr. Dunn printed for you: 1.? After extensive evaluation, there is no life-threatening condition.? Such as stroke or brain tumor. 2.? To prevent another seizure, increase Keppra to 1000 mg twice daily as prescribed until cleared by a doctor taking care of you. 3.? See your neurologist on 12/26/2024 for recheck and further care. At minimum, call the office and let them know what happened and ask for further instructions. Ask to review all test results and official radiology reports, to make sure you receive all necessary follow-ups and monitoring. 4.? Seek immediate medical care with another seizure or with any concerns. Print Language: Lao Stand Alone Forms: Gisselle Award Info., Patient Portal Info Letter
[2024-12-24] MEDS: SODIUM CHLORIDE 0.9% 1000 ML 1,000 ML 999 ML IV (20:12)
[2024-12-24] MEDS: ONDANSETRON INJ 2 MG/ML INJ 2 ML 4 MG IVP (20:14)
[2024-12-24] MEDS: levETIRAcetam INJ 100 MG/ML VIAL 5ML 2000 MG IVP (20:14)
[2024-12-24] MEDS: KETOROLAC INJ 30 MG/ML VIAL IVP (20:19)
[2024-12-24 20:31] LABS: Base Excess -17 (-3-3); HCO3 10 mEq/L (20-26); Inspired Oxygen, FIO2 21 %; O2 Saturation 97 % (91-98); PCO2 29 mmHg (32.0-48.0); PO2 104 mmHg (83-108)
[2024-12-24 20:33] LABS: Basophils # (Auto) 0.1 Thou/mm3 (0.0-0.2); Basophils % (Auto) 1 % (0-2.5); Eosinophils # (Auto) 0.1 Thou/mm3 (0.0-0.5); Eosinophils % (Auto) 0 % (0-10); Hematocrit 50.4 % (41.0-53.0); Hemoglobin 16.2 g/dL (13.5-16.0); Immature Granulocytes Auto 0.08 Thou/mm3 (0.00-0.00); Lymphocytes # (Auto) 3.6 Thou/mm3 (1.0-4.8); Lymphocytes % (Auto) 23 % (10-50); Mean Corpuscular HGB Conc 32.1 g/dl (31.0-37.0); Mean Corpuscular Hemoglobin 29.0 pg (25.0-35.0); Mean Corpuscular Volume 90 fL (80-100); Monocytes # (Auto) 0.7 Thou/mm3 (0.0-0.8); Monocytes % (Auto) 4 % (0-12); Neutrophils # (Auto) 11.5 Thou/mm3 (1.8-7.7); Neutrophils % (Auto) 72 % (37-80); Nucleated Red Blood Cell # 0.00 Thou/mm3 (0.00-0.00); Nucleated Red Blood Cell % 0 /100 WBC (0); Platelet Count 395 Thou/mm3 (140-440); RDW Standard Deviation 40.5 fL (35.1-43.9); Red Blood Count 5.58 Miln/mm3 (4.50-5.90); White Blood Count 16.0 Thou/mm3 (4.5-11.0)
[2024-12-24 20:35] VITALS: BP 160/90; RESP 17; TEMP 36.7; O2SAT 100
[2024-12-24 20:36] LABS: Allen Test Performed/OK; Puncture Site Left Radial; pH, Arterial 7.16 (7.35-7.45)
[2024-12-24 20:52] LABS: Alanine Aminotransferase 17 U/L (10-49); Albumin, Serum 6.0 gm/dL (3.5-5.0); Albumin/Globulin Ratio 2.1 (1.2-2.2); Alcohol, Blood Medical < 3.0 mg/dL (0-10.0); Alkaline Phosphatase 79 U/L (46-116); Anion Gap 30 (7-16); Aspartate Amino Transferase 27 U/L (0-34); BUN/Creatinine Ratio 11 Ratio (12-20); Bilirubin,Direct 0.2 mg/dL (0.0-0.3); Bilirubin,Total 0.5 mg/dL (0.3-1.2); Blood Urea Nitrogen 15 mg/dL (9-23); Calcium 11.0 mg/dL (8.3-10.6); Calcium (Corrected) 11.0 mg/dL (8.5-10.1); Chloride 107 mMol/L (98-107); Creatine Kinase 173 U/L (34-171); Creatinine (Component) 1.4 mg/dL (0.6-1.3); Estimated Creatinine Clearance 72.9 mL/min (>60); Globulin 2.9 gm/dL (2.3-3.5); Glucose 188 mg/dL (74-106); Magnesium 2.2 mg/dL (1.6-2.6); Osmolality,Calculated 298 (275-295); Potassium 3.3 mMol/L (3.4-5.1); Sodium 147 mMol/L (136-145); Thyroid Stimulating Hormone 2.94 uIU/mL (0.55-4.78); Total Protein 8.9 gm/dL (5.7-8.2); Troponin I < 0.002 ng/mL (0.0-0.045); eGFR > 60 See Note
[2024-12-24] MEDS: MORPHINE SULF INJ 10 MG/ML VIAL 4 MG IVP (20:58)
[2024-12-24 21:06] LABS: Collection Type, Urine Clean Catch; Squamous Epithelial Cell,Urine 0 /hpf (0-5)
[2024-12-24 21:09] LABS: Bilirubin,Urine Negative (Negative); Blood,Urine 1+ (Negative); Clarity,Urine Clear (Clear/Hazy); Color,Urine Lt-Yellow (Lt Yel-Yel); Culture Indicated,Urine Not Indicated; Glucose, Urine 3+ (Negative); Ketones,Urine 1+ (Negative); Leukocyte Esterase,Urine Negative (Negative); Nitrite,Urine Negative (Negative); PH,Urine 6.0 (5.0-7.0); Protein,Urine 1+ (Neg - Trace); RBC,Urine < 1 /hpf (0-3); Specific Gravity,Urine 1.020 (1.001-1.035); Urobilinogen,Urine Negative mg/dL (0.0-1.0); WBC,Urine 1 /hpf (0-5)
[2024-12-24 21:22] LABS: Amphetamine/Methamp Scrn,U Negative (Negative); Barbiturate Screen,Urine Negative (Negative); Benzodiazepines Screen,Urine Negative (Negative); Benzoylecgonine Screen, Ur Negative (Negative); Fentanyl Screen,Urine Negative (Negative); Opiate Screen,Urine Negative (Negative); THC Screen,Urine Positive (Negative)
[2024-12-24 21:24] LABS: Carbon Dioxide < 10.0 mMol/L (20.0-31.0)
[2024-12-24 21:31] LABS: Lactate (Lactic Acid) 4.7 mMol/L (0.4-2.0)
[2024-12-24 21:38] LABS: Sed Rate (ESR) 3 mm/hr (0-15)
[2024-12-24 21:57] LABS: Amylase 270 U/L (30-118); C-Reactive Protein < 0.5 mg/dL (0.0-0.9); Lipase 35 U/L (12-53); Procalcitonin 0.04 ng/ml (0.0-0.49)
[2024-12-24] MEDS: RINGERS LACTATED 1000 ML 1,000 ML IV (21:59)
[2024-12-24] MEDS: POTASSIUM CHLORIDE 10% 20 MEQ/15 ML UDC 40 MEQ PO (21:59)
[2024-12-24 22:40] VITALS: BP 125/83; PULSE 77; RESP 19; TEMP 37.1; O2SAT 97
[2024-12-24 23:04] LABS: Base Excess -3 (-3-3); HCO3 24 mEq/L (20-26); Inspired Oxygen, FIO2 21 %; O2 Saturation 76 % (91-98); PCO2 45 mmHg (32.0-48.0); pH, Arterial 7.33 (7.35-7.45)
[2024-12-24 23:07] LABS: Allen Test Performed/OK; PO2 44 mmHg (83-108); Puncture Site Left Radial
[2024-12-24 23:34] LABS: Lactate (Lactic Acid) 2.1 mMol/L (0.4-2.0)
[2024-12-25 00:26] LABS: Reflex Lactate? Y
[2024-12-25 01:02] VITALS: PULSE 88; RESP 19; TEMP 37.1; O2SAT 98
[2024-12-25 02:30] LABS: Reflex Lactate? Y
== END 2024-12-25 01:06 | disposition home or self-care (01) ==
PROVIDERS: Emergency Provider Emergency Medicine; PCP Family Medicine
DX: R56.9 Unspecified convulsions (principal); R07.9 Chest pain, unspecified; R06.02 Shortness of breath; R00.0 Tachycardia, unspecified; R51.9 Headache, unspecified
CPT/HCPCS: 36415; 36600; 70450; 71045; 80053; 80307; 80320; 81001; 82150; 82248; 82550; 82803; 83605; 83690; 83735; 84145; 84443; 84484; 85025; 85652; 86140; 87040; 87400; 87811; 93005; 96361; 96374; 96375; 99284; J1885; J1953; J2270; J2405; J7030; J7120; A9270; G0480